=== PATIENT | male | born 1995 | race Caucasian/White ===

== ENCOUNTER 2024-12-04 03:28 | Emergency (ER) | payer SELFPAY ==
[2024-12-04 03:29] VITALS: BP 140/87; PULSE 76; RESP 17; TEMP 36.6; O2SAT 100; BMI 34.7
--- NOTE | 2024-12-04 03:45 | EDS_ITS ---
HPI History of Present Illness Chief Complaint: Palpitations Narrative Narrative: Patient is a 29-year-old male presenting to the emergency department for intermittent palpitations for the past 2 weeks. Patient has no significant past medical history. Patient states that over the past 2 weeks he has had palpitations but they have worsened over the past few days. States he was try to go to sleep when he started having the palpitations which is why he is here now. He reports that they are random throughout the day. It does not matter if he is exerting himself or rest. States that it occurs for a random amount of time each time he has them. Reports right-sided chest pain as well. States that that has been coming and going in different parts of his chest. Denies any shortness of breath. Denies cough, congestion or sore throat. Denies any diaphoresis, nausea or vomiting. Patient denies any history of any cardiac disease. Denies any hypertension, hyperlipidemia or diabetes history. Denies any drugs or alcohol. Denies any new supplements or excessive caffeine use. [facility] Medical History Cleft palate Home Medications ?Medication ?Instructions ?Recorded ?Last Taken ?Type NK 12/04/24 Unknown History Allergy/AdvReac Type Severity Reaction Status Date / Time No Known Allergies Allergy Verified 12/04/24 03:28 Family History Other Cancer Heart disease Mental disorder Surgical History Hx of tonsillectomy History of repair of congenital cleft palate Social History Smoking Status: Former smoker alcohol intake: current alcohol intake frequency: a few times a month ROS ROS ED ROS Narrative see HPI EXAM Physical Exam Narrative Exam Narrative: Vital signs: Reviewed General: Alert and oriented x 3. No acute distress HEENT: Head is normocephalic and atraumatic, sinuses nontender, pupils equal round and reactive. Nares are patent. Oropharynx and throat exams normal. Neck: Supple without lymphadenopathy nontender Cardiovascular: Regular rate and rhythm, no murmurs. No rubs or gallops. Normal S1 and S2 Respiratory: Clear to auscultation bilaterally. No wheezes, rales, rhonchi Abdominal: Soft and nontender. Normal bowel sounds. No guarding or rebound. Nonsurgical abdomen Extremities: No tenderness. No bruising. Normal range of motion. Normal sensation. Skin: No rash or redness. Neurological: Cranial nerves II through XII are grossly intact. Normal strength and sensation. Normal cerebellar function The rest of the physical exam is unremarkable Const Vital Signs: 12/04/24 03:29 12/04/24 03:29 Temperature 97.8 F Temperature Source Oral Pulse Rate 76 Respiratory Rate 17 Respiratory Effort Normal Blood Pressure 140/87 H Blood Pressure Mean 104 Pulse Ox 100 Oxygen Delivery Method Room Air MDM MDM MDM Narrative Medical decision making narrative: Patient is a 29-year-old male presenting to the emergency department for palpitations. Patient was seen and examined. Vitals are stable. Patient resting bed comfortably in no acute distress. EKG shows normal sinus rhythm with no ischemic changes. No dysrhythmia. Labs including magnesium and TSH were ordered. Troponin was ordered. Chest x-ray was ordered. Chest x-ray reviewed by myself. No opacity, pneumothorax or widened mediastinum noted. CBC with no leukocytosis and a normal hemoglobin. BMP with no significant abnormalities. Troponin within normal limits. His chest pain has been on and off for the past 2 weeks I do not think it is necessary to obtain additional troponins with negative EKG and negative troponin. Magnesium within normal limits. TSH within normal limits. Did discuss the findings with the patient and significant other at bedside. Recommended that he follow-up with his primary care doctor for discussion for possible Holter monitor given the palpitations are on and off. States he does not have one, referral given. Patient discharged from the Emergency Department. I do not feel that the patient's evaluation reveals any acute reason for admission at this time. I instructed them to either follow-up with their primary care physician or promptly return to the Emergency Department for reevaluation should symptoms worsen or new symptoms develop. I explained what symptoms would indicate the need to return to the emergency department. Shared decision making was used. The patient voiced understanding of the treatment plan and is agreeable with it. Clinical impression Palpitations Chest pain History & Record Review Discussion w/independent historian: Patient and Significant other Lab Data Attestation: I reviewed the patient's lab results. Labs: Laboratory Results - last 24 hr 12/04/24 03:49 WBC 8.3 RBC 4.78 Hgb 14.0 Hct 41.5 MCV 86.8 MCH 29.3 MCHC 33.7 RDW Std Deviation 40.2 RDW Coeff of Ariana 12.6 Plt Count 246 MPV 9.6 Immature Gran % (Auto) 0.500 Neut % (Auto) 49.2 Lymph % (Auto) 37.8 [place] % (Auto) 10.2 H Eos % (Auto) 1.5 Baso % (Auto) 0.8 Absolute Neuts (auto) 4.1 Absolute Lymphs (auto) 3.12 Nucleated RBC % 0 Sodium 141 Potassium 4.5 Chloride 105 Carbon Dioxide 27.8 Anion Gap 9 BUN 16 Creatinine 1.05 Estim Creat Clear Calc 107.82 Est GFR (MDRD) Non-Af 97 BUN/Creatinine Ratio 15.2 Glucose 103 H Calcium 9.5 Magnesium 2.2 Troponin T High Sens < 6 TSH 1.860 Radiography Chest X-Ray - ED: 2 View, Read by ED Physician, Normal, No Acute Disease and No Infiltrates Discharge Plan Triage Chief Complaint: Palpitations ED Provider: Kyung Schultz Dx/Rx/DC Orders Clinical Impression: Chest pain, Heart palpitations Instructions: ED Chest Pain, Uncertain Cause, ED Heart Palpitations Prescriptions: No Action NK Primary Care Provider: Care Physician,No Primary Referrals: Bhavesh Salcedo MD [Med Staff - [facility] [employer]] - 2 Days (holter monitor?) Care Physician,No Primary [Primary Care Provider] - Activity Restrictions/Additional Instructions: Your evaluation in the Emergency Department did not reveal any acute reason for admission. However, I want to emphasize that you may be early in the course of a disease process or illness even if it is not present. For this reason you should follow-up within 24 hours for reevaluation with either your primary care physician or if necessary back here in the Emergency Department. You should return to the Emergency Department immediately if your symptoms worsen or new symptoms develop. Print Language: Yakut
[2024-12-04 03:57] LABS: Hematocrit 41.5 % (40-54); Hemoglobin 14.0 g/dL (13.0-16.5); Immature Granulocytes Count 0.040 X10^3/uL (0.0-0.0); Mean Corp Hgb Conc 33.7 g/dL (32-36); Mean Corpuscular Volume 86.8 fL (80-94); Mean Platelet Vol. 9.6 fl (6.2-12.0); NRBC Flagged by Analyzer 0 % (0-5); Platelet Count 246 K/mm3 (150-450); RBC Distribution Width CV 12.6 % (11.6-14.6); RBC Distribution Width SD 40.2 fl (35.1-43.9); Red Blood Count 4.78 M/mm3 (4.6-6.2); White Blood Count 8.3 K/mm3 (4.4-11.0)
--- OUTSIDE RECORDS SUMMARY | 2024-12-04 04:13 | XMS RPT_ITS | CCD ---
Author Organization [facility] Care Team Providers Care Apigee Developer Name Role Phone GEREMIAS JACQUES MD Admitting Unavailable GEREMIAS JACQUES MD Attending Unavailable GEREMIAS JACQUES MD Primary Care Unavailable NO, DOCTOR ON Consulting Unavailable DEFABIOCHARITY DO Admitting Unavailab le DEFABIOCHARITY DO Attending Unavailab le DEFABIO, CHARITY DO Primary Care Unavailab le NO, DOCTOR ON Consulting Unavailable JOSIE TODD CNP Admitting Unavailable JOSIE TODD CNP Attending Unavailable JOSIE TODD CNP Primary Care Unavailable NO, DOCTOR ON Consulting Unavailable ANNETTE HARRIS Referring Unavailable Unavailable Primary Care Provider Unavailabl e Medications Current Medications Medication Drug Class(es) Dates Sig (Normalized) Sig (Original) benzonatate 100 mg oral capsule (1 source) Non-narcotic Antitussive Start: 12-30-2022 take 1 capsule by mouth every eight hours as needed benzonatate (TESSALON PERLES) 100 mg capsule Take 1 capsule by mouth three times daily as needed for cough. 18 capsule 12/30/2022 Active MEN'S MULTI-VITAMIN ORAL (1 source) MEN'S MULTI-VITAMIN ORAL Indications: Anxiety Take by mouth. Active PARoxetine hydrochloride 40 mg oral tablet (1 source) Serotonin Reuptake Inhibitor Start: 06-04-2017 take 1 tablet by mouth once daily PARoxetine (PAXIL) 40 mg tablet Indications: Anxiety Take 1 tablet by mouth once daily. 30 tablet 2 06/04/2017 Active Completed/Discontinued Medications Medication Drug Class(es) Dates Sig (Normalized) Sig (Original) amoxicillin 875 mg / clavulanate 125 mg oral tablet (1 source) Penicillin-class Antibacterial Start: 12-30-2022 End: 01-06-2023 take 1 tablet by mouth twice daily amoxicillin-clav ulanic acid (AUGMENTIN) 875-125 mg per tablet Take 1 tablet by mouth twice daily for 7 days. 14 tablet 12/30/2022 01/06/2023 Problems Active Problems Problem Classification Problem Date Documented Da te Episodic/Chronic Mood disorders (1 source) Major depressive disorder, recurrent severe without psychotic features; Translations: [Major depressive disorder, recurrent severe without psychotic features] Onset: 07-03-2021 Chronic Other lower respiratory disease (1 source) Cough; Translations: [Acute cough] 12-30-2022 Episodic Residual codes; unclassified (1 source) Tobacco use and exposure - finding; Translations: [Tobacco use] 12-13-2016 Episodic Substance-related disorders (1 source) Nicotine dependence, unspecified, uncomplicated; Translations: [Nicotine dependence, unspecified, uncomplicated] Onset: 07-03-2021 Chronic Unclassified (1 source) Acute cough; Translations: [Acute cough] Onset: 12-30-2022 Past or Other Problems Problem Classification Problem Date Documented Da te Episodic/Chronic Other screening for suspected conditions (not mental disorders or infectious disease) (1 source) Encounter for screening for lipoid disorders; Translations: [Encounter for screening for lipoid disorders] Onset: 07-03-2021 Episodic Results Test Name Value Interpretation Reference Range Facility [facility] 12-30-2022 CNOV Office Visit ([facility]WSTR ) -------- FRED LEE ([id number]) 1995 M Date Time Provider Department 12/30/22 1:00 PM ANNETTE HARRIS [facility] During your visit today, we recorded the following information about you: Temperature Pulse Respiration Blood pressure 97.9 degrees 92/minute 16/minute 112/76 Weight 89.4 kg Annette Harris APRN.CNP 12/30/2022 3:07 PM Signed This note was created using Playbooxriter. Subjective Fred Lee is a 27 year old male. 27 year old male with no PMH presents for illness. Acute onset 6 days ago Started with fever and ear pain Has progressed +cough +productive +chest congestion SOB with coughing and doing activity Quit smoking this past August 2022 Has used Dayquil and Nyquil The history is provided by the patient. No modern languages professor was used. Cough This is a new problem. The current episode started more than 2 days ago. The problem occurs constantly. The problem has been gradually worsening. The maximum temperature recorded prior to his arrival was 100 to 100.9 F. Associated symptoms include chills, headaches, rhinorrhea, sore throat and wheezing. Pertinent negatives include no sweats, no weight loss, no ear congestion, no ear pain, no myalgias, no shortness of breath and no eye redness. Treatments tried: see HPI. The treatment provided no relief. He is not a smoker. His past medical history does not include bronchitis, pneumonia, bronchiectasis, COPD, emphysema or asthma. PAST MEDICAL HISTORY Diagnosis Date Anxiety Cleft palate Depression Scoliosis Tobacco use PAST SURGICAL HISTORY Procedure Laterality Date MYRINGOTOMY PALATOPLASTY - CLEFT PALATE PAST SURGICAL HISTORY OF wisdom teeth extraction SEPTOPLASTY deviated septum TONSILLECTOMY HX ALLERGIES Patient has no known allergies. MEDICATIONS MEN'S MULTI-VITAMIN ORAL Take by mouth. amoxicillin-clavulanic acid (AUGMENTIN) 875-125 mg per tablet Take 1 tablet by mouth twice daily for 7 days. benzonatate (TESSALON PERLES) 100 mg capsule Take 1 capsule by mouth three times daily as needed for cough. PARoxetine (PAXIL) 40 mg tablet Take 1 tablet by mouth once daily. (Patient not taking: Reported on 02/09/2019 ) FAMILY HISTORY Problem Relation Age of Onset Psychiatry Mother Heart Father Cancer Maternal Uncle lung, pancreatic, throat Social History Tobacco Use Smoking status: Every Day Packs/day: 0.50 Years: 10.00 Additional pack years: 0.00 Total pack years: 5.00 Types: Cigarettes Start date: 03/26/2006 Smokeless tobacco: Current Types: Chew Substance Use Topics Alcohol use: No Drug use: No Comment: previously used THC, no h/o IVDA Review of Systems Constitutional: Positive for chills. Negative for weight loss. HENT: Positive for rhinorrhea and sore throat. Negative for ear pain. Eyes: Negative for redness. Respiratory: Positive for cough and wheezing. Negative for shortness of breath. Musculoskeletal: Negative for myalgias. Neurological: Positive for headaches. Objective BP 112/76 Pulse 92 Temp 36.6 ?C (97.9 ?F) (Tympanic) Resp 16 Wt 89.4 kg (197 lb) SpO2 97% Physical Exam Vitals and nursing note reviewed. Constitutional: General: He is not in acute distress. Appearance: Normal appearance. He is not ill-appearing, toxic-appearing or diaphoretic. HENT: Head: Normocephalic and atraumatic. Right Ear: External ear normal. Left Ear: External ear normal. Ears: Comments: Left ear with erythematous and bulging TM Nose: Nose normal. No congestion or rhinorrhea. Mouth/Throat: Mouth: Mucous membranes are moist. Pharynx: Oropharynx is clear. No oropharyngeal exudate or posterior oropharyngeal erythema. Eyes: General: Right eye: No discharge. Left eye: No discharge. Extraocular Movements: Extraocular movements intact. Conjunctiva/sclera: Conjunctivae normal. Pupils: Pupils are equal, round, and reactive to light. Cardiovascular: Rate and Rhythm: Normal rate and regular rhythm. Pulses: Normal pulses. Heart sounds: Normal heart sounds. No murmur heard. No friction rub. No gallop. Pulmonary: Effort: Pulmonary effort is normal. No respiratory distress. Breath sounds: Normal breath sounds. No stridor. No wheezing, rhonchi or rales. Chest: Chest wall: No tenderness. Abdominal: General: Abdomen is flat. There is no distension. Palpations: Abdomen is soft. There is no mass. Tenderness: There is no abdominal tenderness. There is no guarding or rebound. Hernia: No hernia is present. Musculoskeletal: General: No swelling, tenderness, deformity or signs of injury. Normal range of motion. Cervical back: Normal range of motion and neck supple. No rigidity or tenderness. Right lower leg: No edema. Left lower leg: No edema. Lymphadenopathy: Cervical: No cervical adenopathy. Skin: General: Skin is warm (more content not included)... Normal [facility] XR CHEST 2V FRONTAL/LATon XR CHEST 2V FRONTAL/LAT * * *Final Report* * * DATE OF EXAM: Dec 30 2022 1:40PM WOX 5291 - XR CHEST 2V FRONTAL/LAT / PROCEDURE REASON: Acute cough * * * * Physician Interpretation * * * * EXAMINATION: CHEST RADIOGRAPH (2 VIEW FRONTAL and LATERAL) CLINICAL HISTORY: Acute cough MQ: XC2_6 EXAM DATE/TIME: 12/30/2022 1:40 PM COMPARISON: No relevant prior studies available. RESULT: Lines, tubes, and devices: None. Lungs and pleura: No consolidation. No lung mass. No pleural effusion. No pneumothorax. Cardiomediastinal silhouette: Normal cardiomediastinal silhouette. Bones and soft tissues: Unremarkable. IMPRESSION: No acute radiographic abnormality. Felt Cementer: PSCB Transcribe Date/Time: Dec 30 2022 1:51P Dictated by : DEDRICK ALMAGUER MD This examination was interpreted and the report reviewed and electronically signed by: DEDRICK ALMAGUER MD on Dec 30 2022 1:53PM EST [id number] Normal [facility] XR Chest PA and Lateralon IMPRESSION: No acute radiographic abnormality. Felt Cementer: PSCB Transcribe Date/Time: Dec 30 2022 1:51P Dictated by : DEDRICK ALMAGUER MD This examination was interpreted and the report reviewed and electronically signed by: DEDRICK ALMAGUER MD on Dec 30 2022 1:53PM EST DIVISION OF RADIOLOGY * * *Final Report* * * DATE OF EXAM: Dec 30 2022 1:40PM WOX 5291 - XR CHEST 2V FRONTAL/LAT / PROCEDURE REASON: Acute cough * * * * Physician Interpretation * * * * EXAMINATION: CHEST RADIOGRAPH (2 VIEW FRONTAL & LATERAL) CLINICAL HISTORY: Acute cough MQ: XC2_6 EXAM DATE/TIME: 12/30/2022 1:40 PM COMPARISON: No relevant prior studies available. RESULT: Lines, tubes, and devices: None. Lungs and pleura: No consolidation. No lung mass. No pleural effusion. No pneumothorax. Cardiomediastinal silhouette: Normal cardiomediastinal silhouette. Bones and soft tissues: Unremarkable. DIVISION OF RADIOLOGY Provider, [facility] - 12/30/2022 * * *Final Report* * * DATE OF EXAM: Dec 30 2022 1:40PM WOX 5291 - XR CHEST 2V FRONTAL/LAT / PROCEDURE REASON: Acute cough * * * * Physician Interpretation * * * * EXAMINATION: CHEST RADIOGRAPH (2 VIEW FRONTAL & LATERAL) CLINICAL HISTORY: Acute cough MQ: XC2_6 EXAM DATE/TIME: 12/30/2022 1:40 PM COMPARISON: No relevant prior studies available. RESULT: Lines, tubes, and devices: None. Lungs and pleura: No consolidation. No lung mass. No pleural effusion. No pneumothorax. Cardiomediastinal silhouette: Normal cardiomediastinal silhouette. Bones and soft tissues: Unremarkable. IMPRESSION IMPRESSION: No acute radiographic abnormality. Felt Cementer: PSCB Transcribe Date/Time: Dec 30 2022 1:51P Dictated by : DEDRICK ALMAGUER MD This examination was interpreted and the report reviewed and electronically signed by: DEDRICK ALMAGUER MD on Dec 30 2022 1:53PM EST [facility] Radiology Study observation (narrative) [facility] XR Chest PA and LateralOrder ed By: [facility] Provider on 12-30-2022 [facility] EMERGENCY REPORTon EMERGENCY REPORT [facility] EMERGENCY ROOM REPORT NAME ACCOUNT SEX AGE ADMIT DISCHARGE PT MED. RECORD# NUMBER DATE TYPE HEATH [id number] Pio 10/31/21 11/01/21 3 FRED Christianson [id number] ROOM: ER DATE OF : 1995 DICTATING PHYSICIAN: Geremias Jacques CHIEF COMPLAINT: Palpitations. HISTORY OF PRESENT ILLNESS: The patient is a 26-year-old male who presents for evaluation of palpitations and chest pain for the last 2 days. The patient notes that he began taking medication again for anxiety. The patient recently started Paxil. He denies shortness of breath, fevers, coughing, abdominal pain, nausea or vomiting, or additional clinical concerns at this time. PAST MEDICAL HISTORY: Past medical history notable for anxiety and depression; otherwise, denies. PAST SURGICAL HISTORY: Notable for cleft lip, palate surgeries, and wisdom teeth removal. ALLERGIES: No known drug allergies. SOCIAL HISTORY: The patient is a current everyday smoker with 1 pack per day. He occasionally uses alcohol. No illicit substance use or prescription drug abuse. Immunizations are up-to-date. No concerns for domestic violence or thoughts of self harm. REVIEW OF SYSTEMS: Pertinent positives per HPI; otherwise, negative. PHYSICAL EXAMINATION: VITAL SIGNS: Temperature 98.2, pulse 90, respiratory rate 18, blood pressure 120/77, oxygen saturation 95% on room air. GENERAL: The patient is awake, alert, and in no acute distress and conversational. HEENT: Atraumatic and normocephalic. Extraocular muscles are intact. Mucous membranes are moist. NECK: Range of motion grossly normal. CARDIOVASCULAR: Regular rate and rhythm. No murmurs, rubs, or gallops. PULMONARY: Clear to auscultation bilaterally. No wheezes, rales, or rhonchi. ABDOMEN: Soft, nontender, and nondistended. Bowel sounds are positive. NEUROLOGIC: No focal findings. PSYCHIATRIC: Appropriate for age and situation. Notably slightly anxious. DIAGNOSTIC DATA: EKG is negative for acute ischemic changes or arrhythmic changes anterior, lateral, or inferior leads. Page 1 of 2 FRED LEE Emergency Room Report FRED LEE : 1995 Laboratory results including a CBC, BMP, troponin, TSH, and liver function testing are unremarkable at this time. MEDICAL DECISION MAKING/EMERGENCY DEPARTMENT COURSE AND TREATMENT: The patient is a 26-year-old male who presents for evaluation of chest pain and palpitations. EKG is negative for acute findings at this time. Laboratory work is unremarkable. Symptoms seem to have improved prior to initial evaluation. I do feel that the patient's symptoms are more likely related to anxiety and potentially related the Paxil, which the patient has recently started. DIAGNOSES: 1. Chest pain. 2. Palpitations. PLAN/DISPOSITION: I did recommend following up with primary care physician for reassessment and consideration of medication adjustments or other treatment options. In order to mitigate symptoms in the future, I did provide the patient with a prescription for a short course of Ativan. I did recommend returning to the emergency department for return of original symptoms or with any new concerns. All of the patient's questions were answered to his satisfaction at this time, and he did feel comfortable with plan for outpatient followup. Condition is good. Disposition is home. Dictated By: Geremias Jacques MD 12/02/21 22:52 JOB #: [id number] Transcribed By: am 12/03/21 13:15 Electronically signed by: DR. GEREMIAS JACQUES 02/22/22 05:00 Page 2 of 2 FRED LEE Emergency Room Report Normal [facility] CBC + DIFFon 11-01-2021 Baso # 0.00 x10EE3/UL Normal 0.00 - 0.10 [facility] Comment on above: Performed By: #### 2 65941 #### [place] [address] Basophils/100 WBC (Bld) 0.7 % Normal 0.0 - 2.0 [facility] Comment on above: Performed By: #### 2 58039 #### [facility],[address] [place] [address] CBC + DIFF Normal [facility] Comment on above: Result Comment: CBC- COMPLETE BLOOD COUNT Performed By: #### 2 47575 #### [place] [address] EO # 0.20 x10EE3/UL Normal 0.00 - 0.50 [facility] Comment on above: Performed By: #### 2 52004 #### [facility],[address] [place] [address] Eosinophils/100 WBC (Bld) 3.1 % Normal 0.0 - 7.0 [facility] Comment on above: Performed By: #### 2 70087 #### [facility],[address] [place] [address] Erythrocyte distribution width (RBC) [Ratio] 13.3 % Normal 12.0 - 15.6 [facility] Comment on above: Performed By: #### 2 98357 #### [facility],[address] [place] [address] Hematocrit (Bld) [Volume fraction] 42.1 % Normal 40.0 - 52.0 [facility] Comment on above: Performed By: #### 2 78141 #### [facility],[address] [place] [address] Hemoglobin (Bld) [Mass/Vol] 14.3 g/dL Normal 13.0 - 17.5 [facility] Comment on above: Performed By: #### 2 01205 #### [facility],[address] [place] [address] Lymph # 2.80 x10EE3/UL Normal 0.80 - 2.80 [facility] Comment on above: Performed By: #### 2 75078 #### [facility],[address] [place] [address] Lymphocytes/100 WBC (Bld) 44.1 % Normal 20.0 - 45.0 [facility] Comment on above: Performed By: #### 2 68124 #### [facility],[address] [place] [address] MANUAL DIFF N/A Normal [facility] Comment on above: Performed By: #### 2 84659 #### [facility],[address] [place] [address] MCH (RBC) [Entitic mass] 30 pg Normal 27 - 33 [facility] Comment on above: Performed By: #### 2 90251 #### [facility],[address] [place] [address] MCHC 34 X10 3 Normal 32 - 36 [facility] Comment on above: Performed By: #### 2 88108 #### [facility],[address] [place], [place] [id number] MCV (RBC) [Entitic vol] 88 fL Normal 81 - 98 [facility] Comment on above: Performed By: #### 2 83975 #### [facility],[address] [place] [address] [place] # 0.60 x10EE3/UL Normal 0.20 - 1.00 [facility] Comment on above: Performed By: #### 2 00213 #### [facility],[address] [place] [address] MONOS % 8.9 % Normal 0.0 - 10.0 [facility] Comment on above: Performed By: #### 2 36665 #### [facility],[address] [place] [address]16[address] Morphology Isaias (Bld) [Interp] N/A Normal [facility] Comment on above: Result Comment: {CD] Performed By: #### 2 04252 #### [facility],[address] [place] [address] 59578 Neut # 2.80 x10EE3/UL Normal 1.50 - 7.10 [facility] Comment on above: Performed By: #### 2 71863 #### [facility],[address] [place] [address] 18863 Neutrophils/100 WBC (Bld) 43.2 % Low 46.0 - 76.0 [facility] Comment on above: Performed By: #### 2 39213 #### [facility],[address] [place], [place] [id number] PLATELET 228 x10EE3/UL Normal 150 - 450 [facility] Comment on above: Performed By: #### 2 61385 #### [facility],[address] [place] [address] 54607 Platelet mean volume (Bld) [Entitic vol] 8.6 fL Normal 6.4 - 10.5 [facility] Comment on above: Result Comment: AUTO MATED DIFFERENTIAL Performed By: #### 2 42627 #### [facility],[address] [place] [address] 94460 RBC 4.81 x 10EE6/UL Normal 4.50 - 6.00 [facility] Comment on above: Performed By: #### 2 38650 #### [facility],[address] [place] [address] 85488 WBC 6.4 x 10EE3/UL Normal 4.5 - 10.8 [facility] Comment on above: Performed By: #### 2 38595 #### [facility],[address] [place] [address] 16858 CMP with eGFRon 11-01-2021 AGE [address] [facility] Comment on above: Performed By: #### 2 04694 #### [facility],[address] [place] [address] 04587 Albumin [Mass/Vol] 3.9 g/dL Normal 3.4 - 5.0 [facility] Comment on above: Performed By: #### 2 25589 #### [facility],[address] [place] [address] 66452 Albumin/Globulin [Mass ratio] 1.3 {ratio} Normal 0.9 - 1.6 [facility] Comment on above: Performed By: #### 2 93146 #### [facility],[address] [place] [address] 20896 ALK PHOS 68 U/L Normal 46 - 116 [facility] Comment on above: Performed By: #### 2 01531 #### [facility],[address] [place] [address] 67745 ALT [Catalytic activity/Vol] 33 U/L Normal 16 - 63 [facility] Comment on above: Performed By: #### 2 17880 #### [facility],[address] [place] [address] 46253 Anion gap [Moles/Vol] 13 mmol/L Normal 10 - 20 [facility] Comment on above: Performed By: #### 2 49327 #### [facility],[address] [place] [address] 37155 AST [Catalytic activity/Vol] 20 U/L Normal 15 - 37 [facility] Comment on above: Performed By: #### 2 12298 #### [facility],[address] [place] [address] 52310 B/C RATIO 21 ratio Normal 0 - 30 [facility] Comment on above: Performed By: #### 2 68866 #### [facility],[address] [place] [address] 19826 Bilirubin [Mass/Vol] 0.7 mg/dL Normal 0.2 - 1.0 [facility] Comment on above: Performed By: #### 2 46095 #### [facility],[address] [place] [address] 55573 Calcium [Mass/Vol] 9.0 mg/dL Normal 8.5 - 10.1 [facility] Comment on above: Performed By: #### 2 31940 #### [facility],[address] [place] [address] 39443 Chloride [Moles/Vol] 105 mmol/L Normal 98 - 107 [facility] Comment on above: Performed By: #### 2 94581 #### [facility],[address] [place] [address] 88558 CMP with eGFR Normal [facility] Comment on above: Result Comment: COMP REHENSIVE METABOLIC PANEL Performed By: #### 2 72937 #### [facility],[address] [place] [address] 62460 CO2 [Moles/Vol] 28.1 mmol/L Normal 21.0 - 32.0 [facility] Comment on above: Performed By: #### 2 85799 #### [facility],[address] [place] [address] 61673 Creatinine [Mass/Vol] 0.92 mg/dL Normal 0.70 - 1.30 [facility] Comment on above: Performed By: #### 2 94654 #### [facility],[address] [place] [address] 27322 GFR/1.73 sq M.predicted among non-blacks MDRD (S/P/Bld) [Vol rate/Area] mL/min/{1.73_m2} Normal 60 - 999 [facility] Comment on above: Performed By: #### 2 26105 #### [facility],[address] [place], [place] [id number] Result Comment: ACCO RDING TO THE NATIONAL KIDNEY DISEASE EDUCATION PROGRAM(NKDE), A NORMAL eGFR IS A VALUE GREATER THAN OR EQUAL TO 60 ML/MIN/1.73 SQ METERS. CHRONIC KIDNEY DISEASE: <60mL/MIN/1.73 SQ METERS KIDNEY FAILURE: <15mL/MIN/1.73 SQ METERS THIS TEST SHOULD ONLY BE USED FOR PATIENTS 18 YEARS OF AGE AND OLDER. Globulin (S) [Mass/Vol] 3.0 g/dL Normal 1.5 - 3.8 [facility] Comment on above: Performed By: #### 2 56077 #### [facility],[address] [place] [address] 05588 Glucose [Mass/Vol] 114 mg/dL High 74 - 106 [facility] Comment on above: Performed By: #### 2 59496 #### [facility],[address] [place] [address] 62023 Potassium [Moles/Vol] 3.8 mmol/L Normal 3.5 - 5.1 [facility] Comment on above: Performed By: #### 2 09320 #### [facility],[address] [place] [address] 87605 Protein [Mass/Vol] 6.9 g/dL Normal 6.4 - 8.2 [facility] Comment on above: Performed By: #### 2 50151 #### [facility],[address] [place] [address] 08166 Sodium [Moles/Vol] 142 mmol/L Normal 136 - 145 [facility] Comment on above: Performed By: #### 2 79404 #### [facility],[address] [place] [address] 78638 Urea nitrogen [Mass/Vol] 19 mg/dL High 7 - 18 [facility] Comment on above: Performed By: #### 2 11833 #### [facility],[address] [place] [address] 81349 TROPONIN I, HIGH SENSITIVITY on 11-01-2021 HS TROPONIN 8.0 pg/mL Normal 0.0 - 76.2 [facility] Comment on above: Performed By: #### 2 19639 #### [facility],[address] [place] [address] 94069 TSHon 11-01-2021 TSH Qn 1.08 m[IU]/L Normal 0.35 - 3.74 [facility] Comment on above: Performed By: #### 2 07215 #### [facility],[address] [place] [id number] Urgent Care Visit Reporton 0 07-15-2021 Urgent Care Visit Report [facility] [address] [facility] [address] [place] [id number] OFFICE VISIT Date of Service: 07/15/21 MR#: [id number] Acct: [id number] Name: FRED ELE Rep #: [id number] : 1995 Provider: TAHIR Jones Age/Sex: 26/M Location: [facility] Status: Signed Intake Vital Signs 07/15/21 14:39 Height 1.65 m Weight: 72.575 kg BMI 26.6 BP 120/81 H Blood Pressure Location Lt brachial Position Sitting Respiration 16 Pulse 89 Pulse Source Monitor Temp 99.1 F Temp Source Temporal Intake Visit Reasons: NAUSEA, FATIGUED Allergies No Known Allergies Allergy (Verified 07/15/21 14:40) [facility] Medical History (Updated 07/15/21 @ 15:00 by TAHIR Michael) Cleft palate Surgical History (Updated 07/15/21 @ 14:43 by Xochitl Arce) History of repair of congenital cleft palate Hx of tonsillectomy Family History (Updated 07/15/21 @ 14:42 by Xochitl Arce) Other Cancer Heart disease Mental disorder Social History (Updated 07/15/21 @ 14:43 by Xochitl Arce) Smoking Status: Current every day smoker tobacco type: cigarettes alcohol intake: current alcohol intake frequency: a few times a month HPI HPI Details: FRED LEE, is a 26 M who presents to the office today for nausea and fatigue. The patient has been sick since thursday. He has nausea, vomiting, decreased PO intake, fatigue, hedache, and cough which he relates to his gag reflex. He also has stomach cramping. He denies diarrhea. His son recently had the same. No SOB/wheezing. ROS Const Constitutional: Positive for body ache, fatigue and headache(s); No chills or fever(s) ENT ENT: Positive for headache(s) Resp Respiratory: Positive for cough; No shortness of breath or wheezing Gastro GI: Positive for cramping, nausea/dyspepsia and vomiting; No diarrhea Neuro Neurology: Positive for headache(s) Endo Endocrine: Positive for fatigue Aller/Imm Allergy/Immunologic: No wheezing Exam Const General: cooperative, comfortable, no acute distress, well developed, well groomed and ill appearing Nutritional Appearance: average body habitus and well nourished Orientation: alert, awake and oriented x3 Resp Effort Inspection: normal respiratory effort, able to speak in complete sentences, symmetric chest movement and no cough Auscultation: Bilateral: Clear to Auscultation Cardio Rate: regular rate Rhythm: regular rhythm Heart Sounds: no murmurs GI Auscultation: hypoactive bowel sounds Palpation: soft, not firm, no guarding and tender (diffusely, with moderate pressure, no guarding/rigidity) Results POC SARS AG POC SARS AG Negative Last Edit by Xochitl Arce on 07/15/21 14:47 POC FLU A B Office Flu A B Negative FLU A B Last Edit by Xochitl Arce on 07/15/21 14:47 Coding Level of Care Code Off vis,new,level 3 Diagnoses Viral gastroenteritis A08.4 Assessment and Plan Assessment and Plan (1) Viral gastroenteritis: Status: Acute Plan - TAHIR Michael: Sick x 48 hours with nausea vomiting, fatigue, dec PO intake. Son had same. he had some body aches, headache, and cough (tho he related this to gag reflex). Tested him for covid and flu here in the office. these were both negative. He was educated on viral gastroenteritis. he was advised to hydrate and slowly advance diet as tolerated avoiding spicy/greasy foods. pt was prescribed zofran for nausea. Plan Details Other Medications: New: ondansetron 4 mg PO Q6H PRN 20 tabs 0RF nausea and vomiting Other Orders: Orders: POC FLU A B Today R51.9, R53.83 POC Rapid SARS Antigen Today 07/15/21 1502 Date Pola HARO Cosigner Signature: Date (if applicable) CC: Normal [facility] EMERGENCY REPORTon 1 EMERGENCY REPORT [facility] EMERGENCY ROOM REPORT NAME ACCOUNT SEX AGE ADMIT DISCHARGE PT MED. RECORD# NUMBER DATE DATE TYPE HEATH [id number] Pio 26 03/29/21 03/29/21 Swetha FRED Christianson [id number] ROOM: ER DATE OF : 1995 DICTATING PHYSICIAN: Charity Rai HISTORY OF PRESENT ILLNESS: The patient is a 26-year-old male with a past medical history of anxiety, not on any anti-anxiety medication, presenting to the Emergency Department because he believes he had a panic attack overnight. The patient states that he was doing nothing, and then all of a sudden his chest felt tight, and he felt like he could not breathe. He got incredibly anxious and felt cold all over his body. The patient states he has had this happen before when he used to get anxiety attacks. However, he has not been on any anti-anxiety medications for quite some time, as he took himself off of them. The patient denies any shortness of breath, chest pain, or numbness or tingling at this point in time. The patient states he has gotten these often in the past; however, it has been awhile since he has gotten it. The patient denies any stressors in his life. The patient denies any suicidal ideation, homicidal ideation or hallucinations. The patient denies any history of DVT, PE, recent immobilization, recent surgery, recent travel, unilateral leg swelling, hemoptysis, active cancer that he is aware of, or exogenous hormone use. SOCIAL HISTORY: The patient denies any illicit drug use, alcohol use or marijuana use. REVIEW OF SYSTEMS: Ten-point review of systems was completed and all negative unless otherwise stated above. PHYSICAL EXAMINATION: GENERAL: The patient is in no acute distress and is nontoxic-appearing. HEENT: Head is normocephalic, atraumatic. PERRLA, EOMI. Conjunctivae are clear. TMs are unremarkable bilaterally. External ears are unremarkable bilaterally. Nares without any epistaxis, rhinorrhea or congestion. Septum is midline. Oropharynx with moist mucous membranes. NECK: No cervical lymphadenopathy. Full range of motion of the neck with no nuchal rigidity. LUNGS: Lungs are clear to auscultation bilaterally with no wheezing, rales or rhonchi. The patient is saturating 99% on room air. Unlabored breathing with no evidence of retractions or tachypnea. CARDIOVASCULAR: Regular rate and rhythm with no murmurs, rubs or gallops. Capillary refill is less than 2 seconds. DP, PT and radial pulses are 2+. ABDOMEN: Soft, nondistended and nontender with no evidence of rigidity or guarding. No cva tenderness bilaterally. Negative Willett's. Negative Rovsing's. MUSCULOSKELETAL: The patient has 5/5 strength in all 4 extremities through full range of motion with sensation and two-point discrimination intact at less than 5 mm. The patient has no evidence of ataxia on pbgaww-am-vdqq or odym-sc-svuw. Page 1 of 2 FRED LEE Emergency Room Report FRED LEE : 1995 NEUROLOGIC: The patient is alert and oriented to person, place and time. Cranial nerves II through XII are intact. NIH of 0. The patient appears at his neurologic baseline per his girlfriend. PSYCHIATRIC: The patient does have a flat affect, however appropriate mood and thought process. DIAGNOSTIC DATA: The patient's EKG shows normal sinus rhythm with a ventricular rate of 82. Intervals are within normal limits. QTc is 434. No significant ST or T-wave abnormalities significant for acute ischemia. Evidence of early repolarization in the precordial leads. No STEMI. The patient's chest x-ray shows no acute radiographic abnormality. No evidence of pneumothorax or pneumonia. Cardiac silhouette is appropriate. The patient's laboratory evaluation shows no evidence of leukocytosis, anemia or thrombocytopenia. Metabolic panel without significant electrolyte abnormality. Kidney function is appropriate. Troponin is unremarkable at 4 and 4.9 on repeat with an unremarkable EKG. MEDICAL DECISION-MAKING/EMERGENC Y DEPARTMENT COURSE AND TREATMENT: The patient is a 26-year-old male with a past medical history of untreated anxiety presenting for chest pain and a suspected anxiety attack. The patient will receive an ACS work-up at this point in time. The patient can be PERC'd out as far as a pulmonary embolism, as he is not tachycardic and has no other risk factors. The patient is a low probability Wells as well. The patient states he is back to baseline and feels well right now and is symptom free. Given his unremarkable work-up, I feel that the patient can safely be discharged home to follow up with a primary care provider. The patient was provided with information and resources on PCPs, as his recently retired. I answered all of the patient's questions to the best of my ability. The patient was comfortable with this plan. The patient was made aware that if any new or worsening symptoms arose he should return to the Emergency Department immediately (more content not included)... Normal [facility] BMP with eGFRon 03-29-2021 AGE [address] [facility] Comment on above: Performed By: #### 2 56521 #### [facility],[address] [place] [address] Anion gap [Moles/Vol] 13 mmol/L Normal 10 - 20 [facility] Comment on above: Performed By: #### 2 89213 #### [facility],[address] [place] [address] BMP with eGFR Normal [facility] Comment on above: Result Comment: BASI C METABOLIC PANEL Performed By: #### 2 20071 #### [facility],[address] [place] [address] Calcium [Mass/Vol] 9.1 mg/dL Normal 8.5 - 10.1 [facility] Comment on above: Performed By: #### 2 49551 #### [facility],[address] [place] [address] 62232 Chloride [Moles/Vol] 103 mmol/L Normal 98 - 107 [facility] Comment on above: Performed By: #### 2 96490 #### [facility],[address] [place] [address] 33552 CO2 [Moles/Vol] 29.4 mmol/L Normal 21.0 - 32.0 [facility] Comment on above: Performed By: #### 2 77244 #### [facility],[address] [place] [address] Creatinine [Mass/Vol] 0.96 mg/dL Normal 0.70 - 1.30 [facility] Comment on above: Performed By: #### 2 76270 #### [facility],[address] [place], [place] [id number] GFR/1.73 sq M.predicted among non-blacks MDRD (S/P/Bld) [Vol rate/Area] mL/min/{1.73_m2} Normal 60 - 999 [facility] Comment on above: Performed By: #### 2 87272 #### [facility],[address] [place] [address] Result Comment: ACCO RDING TO THE NATIONAL KIDNEY DISEASE EDUCATION PROGRAM(NKDE), A NORMAL eGFR IS A VALUE GREATER THAN OR EQUAL TO 60 ML/MIN/1.73 SQ METERS. CHRONIC KIDNEY DISEASE: <60mL/MIN/1.73 SQ METERS KIDNEY FAILURE: <15mL/MIN/1.73 SQ METERS THIS TEST SHOULD ONLY BE USED FOR PATIENTS 18 YEARS OF AGE AND OLDER. Glucose [Mass/Vol] 100 mg/dL Normal 74 - 106 [facility] Comment on above: Performed By: #### 2 75923 #### [place] [phone] Potassium [Moles/Vol] 3.6 mmol/L Normal 3.5 - 5.1 [facility] Comment on above: Performed By: #### 2 45571 #### [facility],[address] [place], [place] [phone] Sodium [Moles/Vol] 142 mmol/L Normal 136 - 145 [facility] Comment on above: Performed By: #### 2 20383 #### [place] [phone] Urea nitrogen [Mass/Vol] 22 mg/dL High 7 - 18 [facility] Comment on above: Performed By: #### 2 42347 #### [facility],[address] [place], [place] [id number] CBC + DIFFon 03-29-2021 Baso # 0.10 x10EE3/UL Normal 0.00 - 0.10 [facility] Comment on above: Performed By: #### 2 29908 #### [facility],[address] [place] [address] 91895 Basophils/100 WBC (Bld) 1.1 % Normal 0.0 - 2.0 [facility] Comment on above: Performed By: #### 2 47091 #### [facility],[address] [place] [address] CBC + DIFF Normal [facility] Comment on above: Result Comment: CBC- COMPLETE BLOOD COUNT Performed By: #### 2 55970 #### [facility],[address] [place] [address] EO # 0.20 x10EE3/UL Normal 0.00 - 0.50 [facility] Comment on above: Performed By: #### 2 86986 #### [facility],[address] [place], [place] [phone] Eosinophils/100 WBC (Bld) 2.7 % Normal 0.0 - 7.0 [facility] Comment on above: Performed By: #### 2 29379 #### [facility],[address] [place] [address] Erythrocyte distribution width (RBC) [Ratio] 13.8 % Normal 12.0 - 15.6 [facility] Comment on above: Performed By: #### 2 08355 #### [facility],[address] [place] [address] Hematocrit (Bld) [Volume fraction] 43.4 % Normal 40.0 - 52.0 [facility] Comment on above: Performed By: #### 2 64112 #### [facility],[address] [place] [address] 26901 Hemoglobin (Bld) [Mass/Vol] 14.7 g/dL Normal 13.0 - 17.5 [facility] Comment on above: Performed By: #### 2 13583 #### [facility],[address] [place] [address] Lymph # 2.90 x10EE3/UL High 0.80 - 2.80 [facility] Comment on above: Performed By: #### 2 77017 #### [facility],[address] [place], [place] [phone] Lymphocytes/100 WBC (Bld) 31.6 % Normal 20.0 - 45.0 [facility] Comment on above: Performed By: #### 2 42886 #### [facility],[address] [place], [place] [phone] MANUAL DIFF N/A Normal [facility] Comment on above: Performed By: #### 2 92391 #### [facility],[address] [place], [place] [phone] MCH (RBC) [Entitic mass] 29 pg Normal 27 - 33 [facility] Comment on above: Performed By: #### 2 19067 #### [facility],[address] [place] [address] MCHC 34 X10 3 Normal 32 - 36 [facility] Comment on above: Performed By: #### 2 36454 #### [facility],[address] [place] [address] 12433 MCV (RBC) [Entitic vol] 87 fL Normal 81 - 98 [facility] Comment on above: Performed By: #### 2 21772 #### [facility],[address] [place] [address] 84993 [place] # 0.70 x10EE3/UL Normal 0.20 - 1.00 [facility] Comment on above: Performed By: #### 2 08255 #### [facility],[address] [place] [address] 70368 MONOS % 7.1 % Normal 0.0 - 10.0 [facility] Comment on above: Performed By: #### 2 41656 #### [facility],[address] [place] [address] 90021 Morphology Isaias (Bld) [Interp] N/A Normal [facility] Comment on above: Result Comment: {CD] Performed By: #### 2 66751 #### [facility],[address] [place] [address] 99141 Neut # 5.30 x10EE3/UL Normal 1.50 - 7.10 [facility] Comment on above: Performed By: #### 2 08300 #### [facility],[address] [place] [address] 90829 Neutrophils/100 WBC (Bld) 57.5 % Normal 46.0 - 76.0 [facility] Comment on above: Performed By: #### 2 65509 #### [facility],[address] [place] [address] 14431 PLATELET 279 x10EE3/UL Normal 150 - 450 [facility] Comment on above: Performed By: #### 2 52336 #### [facility],[address] [place] [address] 34169 Platelet mean volume (Bld) [Entitic vol] 8.1 fL Normal 6.4 - 10.5 [facility] Comment on above: Result Comment: AUTO MATED DIFFERENTIAL Performed By: #### 2 74464 #### [facility],[address] [place] [address] 47657 RBC 5.00 x 10EE6/UL Normal 4.50 - 6.00 [facility] Comment on above: Performed By: #### 2 66429 #### [facility],[address] [place] [address] 73883 WBC 9.2 x 10EE3/UL Normal 4.5 - 10.8 [facility] Comment on above: Performed By: #### 2 75142 #### [facility],[address] [place] [address] 13990 CHEST 1 VIEWon 03-29-2021 CHEST 1 VIEW [place] [address] Patient: FRED LEE Phone#: : 1995 Age: 26 Gender: M Pt. Type: ER Account: [id number] Location: [facility] Ordering: DR. CHARITY RAI Exam Date: 03/29/2021/4:10 Family Phys: NO DOCTOR Charge Code: 309285 Physician: [place] Order #: [id number] DLP Dose#: PROCEDURE: X-RAY CHEST 1 VIEW COMPARISON: [facility], XR, CHEST 1 VIEW, 04/03/2020, 5:44. INDICATIONS: Chest pain. FINDINGS: LUNGS: Normal. No significant pulmonary parenchymal abnormalities. VASCULATURE: Normal. Unremarkable pulmonary vasculature. CARDIAC: Normal. No cardiac silhouette abnormality or cardiomegaly. MEDIASTINUM: Normal. No visible mass or adenopathy. PLEURA: Normal. No effusion or pleural thickening. BONES: Normal. No fracture or visible bony lesion. OTHER: Negative. CONCLUSION: No acute disease. No significant change has occurred. Dictated by: Keren Schwartz MD on 03/29/2021 at 10:33 Approved by: Keren Schwartz MD on 03/29/2021 at 10:[address] [facility] TROPONIN I, HIGH SENSITIVITY on 03-29-2021 HS TROPONIN 4.9 pg/mL Normal 0.0 - 76.2 [facility] Comment on above: Performed By: #### 2 01521 #### [facility],[address] [place] [address] HS TROPONIN <4.0 Normal 0.0 - 76.2 [facility] Comment on above: Performed By: #### 2 68043 #### [facility],[address] [place], [place] [address] Basic Metabolic Panlon 03-02 Anion gap 3 molar conc 12 mmol/L Normal 9-18 [facility] Comment on above: Performed By: #### T SH, BMP, LI ####[facility] [address] [place] [phone] Calcium mass conc 9.6 mg/dL Normal 8.5-10.2 [facility] Comment on above: Performed By: #### T SHABBIR ROMERO, LI ####[facility] [address]CGl[address] [place] [phone] Chloride molar conc 102 mmol/L Normal 97-105 [facility] Comment on above: Performed By: #### T SHABBIR ROMERO, LI ####[facility] [phone] CO2 molar conc 26 mmol/L Normal 22-30 [facility] Comment on above: Performed By: #### T SHABBIR ROMERO, LI ####[place] [address] [address] [place] [phone] Creatinine mass conc 0.92 mg/dL Normal 0.73-1.22 [facility] Comment on above: Performed By: #### T SHABBIR ROMERO, LI ####[facility] [address] AvJoseph [place] [phone] eGFR- Amer. >60 Normal [facility] Comment on above: Performed By: #### T SHABBIR ROMERO, LI ####[facility] [phone] GFR/1.73 sq M predicted among non-blacks MDRD vol rate/area (S/P/Bld) mL/min/{1.73_m2} Normal [facility] Comment on above: Performed By: #### T SHABBIR ROMERO, LI ####[facility] [address] AvDer[address] [place] [phone] Glucose mass conc 92 mg/dL Normal 74-99 [facility] Comment on above: Performed By: #### T SHABBIR ROMERO, LI ####[facility] Xcj[address]CErica [place] [phone] Potassium molar conc 4.2 mmol/L Normal 3.7-5.1 [facility] Comment on above: Performed By: #### T SHABBIR ROMERO LI ####[facility] [address] AvDer[address] [place] [phone] Sodium molar conc 140 mmol/L Normal 136-144 [facility] Comment on above: Performed By: #### T SHABBIR ROMERO, LI ####[phone] Urea nitrogen mass conc 11 mg/dL Normal 9-24 [facility] Comment on above: Performed By: #### T SHABBIR ROMERO LI ####[facility] [address] [place] [phone] TSHon 03-02-2018 Thyrotropin Qn 2.940 uU/mL Normal 0.400-5.500 [facility] Comment on above: Performed By: #### T SHABBIR ROMERO LI ####[address] [place] [phone] Lithiumon 03-01-2018 [place] molar conc 0.4 mmol/L Low 0.6-1.2 [facility] Comment on above: Performed By: #### T SHABBIR ROMERO, CAESAR ####[facility] [address] [place], [place] [address] [place] [phone] CBC and Differentialon 02-11 Abs Baso 0.07 k/uL Normal <0.11 [facility] Comment on above: Performed By: #### L I, CMP, CBCDIF, TSH, VITD ####[facility] [address] Av[address] [place] [phone] Abs [place] 0.68 k/uL Normal <0.87 [facility] Comment on above: Performed By: #### L I, CMP, CBCDIF, TSH, VITD ####[place] [address] [address] [place] [phone] Abs Neut 4.15 k/uL Normal 1.45-7.50 [facility] Comment on above: Performed By: #### L I, CMP, CBCDIF, TSH, VITD ####[place] [phone] Absolute nRBC <0.01 Normal <0.01 [facility] Comment on above: Performed By: #### L I, CMP, CBCDIF, TSH, VITD ####[place] [phone] Basophils/100 WBC Auto (Bld) 0.9 % Normal [facility] Comment on above: Performed By: #### L I, CMP, CBCDIF, TSH, VITD ####[place] [phone] DTYPE ADIFF Normal [facility] Comment on above: Performed By: #### L I, CMP, CBCDIF, TSH, VITD ####[place] [phone] Eosinophils Auto #/vol (Bld) 0.28 10*3/uL Normal <0.46 [facility] Comment on above: Performed By: #### L I, CMP, CBCDIF, TSH, VITD ####[address] [place] [phone] Eosinophils/100 WBC Auto (Bld) 3.7 % Normal [facility] Comment on above: Performed By: #### L I, CMP, CBCDIF, TSH, VITD ####[address] [place] [phone] Erythrocyte distribution width Auto Ratio (RBC) 13.7 % Normal 11.5-15.0 [facility] Comment on above: Performed By: #### L I, CMP, CBCDIF, TSH, VITD ####[place] [id number] [place] [phone] Hematocrit Auto Volume Fraction (Bld) 46.5 % Normal 39.0-51.0 [facility] Comment on above: Performed By: #### L I, CMP, CBCDIF, TSH, VITD ####[place] [address] [address] [place] [phone] Hemoglobin mass conc (Bld) 15.3 g/dL Normal 13.0-17.0 [facility] Comment on above: Performed By: #### L I, CMP, CBCDIF, TSH, VITD ####[place] [address] [address] [place] [phone] Lymphocytes Auto #/vol (Bld) 2.48 10*3/uL Normal 1.00-4.00 [facility] Comment on above: Performed By: #### L I, CMP, CBCDIF, TSH, VITD ####[place] [address] [address] [place] [phone] Lymphocytes/100 WBC Auto (Bld) 32.4 % Normal [facility] Comment on above: Performed By: #### L I, CMP, CBCDIF, TSH, VITD ####[place] [address] [address] [place] [phone] MCH Auto Entitic mass (RBC) 29.9 pG Normal 26.0-34.0 [facility] Comment on above: Performed By: #### L I, CMP, CBCDIF, TSH, VITD ####[place] [address] [address] [place] [phone] MCHC Auto mass conc (RBC) 32.9 g/dL Normal 30.5-36.0 [facility] Comment on above: Performed By: #### L I, CMP, CBCDIF, TSH, VITD ####[place] [address] [address] [place] [phone] MCV Auto Entitic volume (RBC) 90.8 fL Normal 80.0-100.0 [facility] Comment on above: Performed By: #### L I, CMP, CBCDIF, TSH, VITD ####[place] [address] [phone] Monocytes/100 WBC Auto (Bld) 8.9 % Normal [facility] Comment on above: Performed By: #### L I, CMP, CBCDIF, TSH, VITD ####[place] [address] [address] [place] [phone] Neutrophils/100 WBC Auto (Bld) 54.1 % Normal [facility] Comment on above: Performed By: #### L I, CMP, CBCDIF, TSH, VITD ####[place] [address] [address] [place] [phone] NRBCs 0.0 /100 WBC Normal 0 [facility] Comment on above: Performed By: #### L I, CMP, CBCDIF, TSH, VITD ####[place] [address] [address] [place] [phone] Platelet mean volume Auto Entitic volume (Bld) 11.3 fL Normal 9.0-12.7 [facility] Comment on above: Performed By: #### L I, CMP, CBCDIF, TSH, VITD ####[place] [address] [address] [place] [phone] Platelets Auto #/vol (Bld) 239 10*3/uL Normal 150-400 [facility] Comment on above: Performed By: #### L I, CMP, CBCDIF, TSH, VITD ####[facility] [address] [place], [place] [phone] RBC Auto #/vol (Bld) 5.12 10*6/uL Normal 4.20-6.00 [facility] Comment on above: Performed By: #### L I, CMP, CBCDIF, TSH, VITD ####[address] [place], [place] [phone] WBC Auto #/vol (Bld) 7.66 10*3/uL Normal 3.70-11.00 [facility] Comment on above: Performed By: #### L I, CMP, CBCDIF, TSH, VITD ####[address] [place], [place] [phone] Comp Metabolic Panelon 02-11 Albumin mass conc 4.8 g/dL Normal 3.9-4.9 [facility] Comment on above: Performed By: #### L I, CMP, CBCDIF, TSH, VITD ####[address] [place], [place] [phone] ALP enzyme act/vol 91 U/L Normal 38-113 [facility] Comment on above: Performed By: #### L I, CMP, CBCDIF, TSH, VITD ####[address] [place], [place] [phone] ALT enzyme act/vol 35 U/L Normal 10-54 [facility] Comment on above: Performed By: #### L I, CMP, CBCDIF, TSH, VITD ####[address] [place], [place] [phone] Anion gap 3 molar conc 14 mmol/L Normal 9-18 [facility] Comment on above: Performed By: #### L I, CMP, CBCDIF, TSH, VITD ####[facility] [address] [place] [phone] AST enzyme act/vol 39 U/L Normal 14-40 [facility] Comment on above: Performed By: #### L I, CMP, CBCDIF, TSH, VITD ####[facility] [address] [place] [phone] Bilirubin Ql (U) 0.8 mg/dL Normal 0.2-1.3 [facility] Reference [facility] Comment on above: Performed By: #### L I, CMP, CBCDIF, TSH, VITD ####[address] [place] [phone] Calcium mass conc 10.1 mg/dL Normal 8.5-10.2 [facility] Comment on above: Performed By: #### L I, CMP, CBCDIF, TSH, VITD ####[address] [place] [phone] Chloride molar conc 103 mmol/L Normal 97-105 [facility] Reference [facility] Comment on above: Performed By: #### L I, CMP, CBCDIF, TSH, VITD ####[place] [address] [place] [phone] CO2 molar conc 25 mmol/L Normal 22-30 [facility] Comment on above: Performed By: #### L I, CMP, CBCDIF, TSH, VITD ####[facility] [address] [place] [phone] Creatinine mass conc 0.69 mg/dL Low 0.73-1.22 [facility] Comment on above: Performed By: #### L I, CMP, CBCDIF, TSH, VITD ####[facility] [address] [place] [phone] eGFR- Amer. >60 Normal [facility] Comment on above: Performed By: #### L I, CMP, CBCDIF, TSH, VITD ####[place] [phone] GFR/1.73 sq M predicted among non-blacks MDRD vol rate/area (S/P/Bld) mL/min/{1.73_m2} Normal [facility] Comment on above: Performed By: #### L I, CMP, CBCDIF, TSH, VITD ####[place] [phone] Glucose mass conc 84 mg/dL Normal 74-99 [facility] Comment on above: Performed By: #### L I, CMP, CBCDIF, TSH, VITD ####[place] [phone] Potassium molar conc 4.2 mmol/L Normal 3.7-5.1 [facility] Comment on above: Performed By: #### L I, CMP, CBCDIF, TSH, VITD ####[place] [phone] Protein mass conc 7.8 g/dL Normal 6.3-8.0 [facility] Comment on above: Performed By: #### L I, CMP, CBCDIF, TSH, VITD ####[place] [phone] Sodium molar conc 142 mmol/L Normal 136-144 [facility] Comment on above: Performed By: #### L I, CMP, CBCDIF, TSH, VITD ####[place] [phone] Urea nitrogen mass conc 11 mg/dL Normal 9-24 [facility] Comment on above: Performed By: #### L I, CMP, CBCDIF, TSH, VITD ####[facility] [address] [place], [place] [phone] Lithiumon 02-11-2018 [place] molar conc mmol/L Low 0.6-1.2 [facility] Comment on above: Performed By: #### L I, CMP, CBCDIF, TSH, VITD ####[facility] [address] [place], [place] [phone] TSHon 02-11-2018 Thyrotropin Qn 0.837 uU/mL Normal 0.400-5.500 [facility] Reference Lab Comment on above: Performed By: #### L I, CMP, CBCDIF, TSH, VITD ####[facility] [id number] [place], [place] [phone] Vitamin D 25 Hydroxyon 02-11 Vitamin D 25 Hydroxy 31.6 ng/mL Normal 31.0-80.0 [facility] Comment on above: Performed By: #### L I, CMP, CBCDIF, TSH, VITD ####[facility] [id number] [place], [place] [phone] Encounters Encounter Date Encounter Type Care Provider Facility Start: 12-30-2022 End: 12-30-2022 ambulatory ANNETTE HARRIS Facility:[facility] Start: 12-30-2022 End: 12-30-2022 Subsequent hospital visit by physician Brittany [facility] [place] Work Phone: Radiology Comment on above: Acute cough [R05.1] Start: 10-31-2021 End: 11-01-2021 Emergency department patient visit GEREMIAS JACQUES [facility] Start: 07-03-[address] [facility] Start: 03-29-2021 End: 03-29-2021 Emergency department patient visit CHARITY CHACKO [facility] Procedures Date Procedure Procedure Detail Performing Clinician Start: 12-30-2022 Radiologic exam ches t 2 views Annette Harris [employer] Work Phone: Plan of Treatment Date Care Activity Detail Author Start: 03-11-2029 Urine microalbumin profile DTaP,Tdap,Td Vaccine (3 - Td or Tdap) [facility] Start: 12-06-2023 Covid-19 Vaccine ( season) Covid-19 Vaccine ( season) [facility] Start: 12-06-2023 Influenza vaccination Influenza Vacc ine (#1) [facility] Start: 2012 Hepatitis B Vaccine (1 of 3 - 19+ 3-dose series) Hepatitis B Vaccine (1 of 3 - 19+ 3-dose series) [facility] Start: 2011 Anxiety Screening Anxiety Screening [facility] Start: 2011 Depression Screening Depression Scre ening [facility] Start: 2011 HIV screening HIV Screening [facility] Start: 1999 Pneumococcal vaccination Pneum ococcal Vaccine (1 of 2 - PCV) [facility] Immunizations Immunization Date Immunization Notes Care Provider Fa eloyty 03-11-2019 tetanus toxoid, redu faizan diphtheria toxoid, and acellular pertussis vaccine, adsorbed Xr [place] Work Phone: [facility] 12-13-2016 influenza virus vacc ine, unspecified formulation Xr [place] Work Phone: [facility] Social History Date Type Detail Facility Start: 03-26-2006 Tobacco smoking stat us MDIS Smokes tobacco daily [facility] Start: 03-26-2006 History of tobacco use Cigarette Smo ker [facility] Start: 03-15-2020 End: 12-30-2022 Cigarettes smoked current (pack per day) - Reported 0.5 [facility] Start: 12-30-2022 Tobacco use and exposure User of smokeless tobacco [facility] History of tobacco use [facility] Start: 12-30-2022 Alcoholic beverage intake Curr ent non-drinker of alcohol (finding) [facility] Start: 03-15-2020 End: 12-30-2022 Tobacco use panel [facility] National Score (1-10 0), lower number is lower risk Not on file [facility] Start: 1993 Sex assigned at Not on file C [facility] Progress note 12-30-2022 Note Date & Type Note Facility 12-30-2022 Note HNO ID: [id number] Author: Ryann Lemus RT(R) Service: Radiology Author Type: Technologist Type: Progress Notes Filed: 12/30/2022 1:41 PM Note Text: Radiology Service Progress Note PATIENT NAME: Fred Lee DATE OF SERVICE: December 30, 2022 TIME: 1:28 PM PATIENT IDENTITY VERIFICATION COMPLETED USING TWO (2) IDENTIFIERS: Name and Date of confirmed by patient verbally. FALL SCREENING: Has the patient had 2 falls in the last year or 1 fall with injury or currently using an Ambulatory Assistive Device (Walker, Cane, Wheelchair, Crutches, etc.)? No PATIENT GENDER DATA: Male PATIENT RELEVANT IMPLANT DATA REVIEWED: Yes RADIOLOGY DEPARTMENT: General X-ray: Exam(s) Completed: Chest X-Ray PERIPHERAL IV DATA: Not applicable SIGNED BY: RT Yana(R) December 30, 2022 1:28 PM [facility] Progress note 12-30-2022 Note Date & Type Note Facility 12-30-2022 Note HNO ID: [id number] Author: Annette Harris APRN.[employer] Service: ? Author Type: Nurse Practitioner Type: Progress Notes Filed: 12/30/2022 3:07 PM Note Text: This note was created using NoteWriter. Subjective Fred Lee is a 27 year old male. 27 year old male with no PMH presents for illness. Acute onset 6 days ago Started with fever and ear pain Has progressed +cough +productive +chest congestion SOB with coughing and doing activity Quit smoking this past August 2022 Has used Dayquil and Nyquil The history is provided by the patient. No modern languages professor was used. Cough This is a new problem. The current episode started more than 2 days ago. The problem occurs constantly. The problem has been gradually worsening. The maximum temperature recorded prior to his arrival was 100 to 100.9 F. Associated symptoms include chills, headaches, rhinorrhea, sore throat and wheezing. Pertinent negatives include no sweats, no weight loss, no ear congestion, no ear pain, no myalgias, no shortness of breath and no eye redness. Treatments tried: see HPI. The treatment provided no relief. He is not a smoker. His past medical history does not include bronchitis, pneumonia, bronchiectasis, COPD, emphysema or asthma. PAST MEDICAL HISTORY Diagnosis Date Anxiety Cleft palate Depression Scoliosis Tobacco use PAST SURGICAL HISTORY Procedure Laterality Date MYRINGOTOMY PALATOPLASTY - CLEFT PALATE PAST SURGICAL HISTORY OF wisdom teeth extraction SEPTOPLASTY deviated septum TONSILLECTOMY HX ALLERGIES Patient has no known allergies. MEDICATIONS MEN'S MULTI-VITAMIN ORAL Take by mouth. amoxicillin-clavulanic acid (AUGMENTIN) 875-125 mg per tablet Take 1 tablet by mouth twice daily for 7 days. benzonatate (TESSALON PERLES) 100 mg capsule Take 1 capsule by mouth three times daily as needed for cough. PARoxetine (PAXIL) 40 mg tablet Take 1 tablet by mouth once daily. (Patient not taking: Reported on 02/09/2019 ) FAMILY HISTORY Problem Relation Age of Onset Psychiatry Mother Heart Father Cancer Maternal Uncle lung, pancreatic, throat Social History Tobacco Use Smoking status: Every Day Packs/day: 0.50 Years: 10.00 Additional pack years: 0.00 Total pack years: 5.00 Types: Cigarettes Start date: 03/26/2006 Smokeless tobacco: Current Types: Chew Substance Use Topics Alcohol use: No Drug use: No Comment: previously used THC, no h/o IVDA Review of Systems Constitutional: Positive for chills. Negative for weight loss. HENT: Positive for rhinorrhea and sore throat. Negative for ear pain. Eyes: Negative for redness. Respiratory: Positive for cough and wheezing. Negative for shortness of breath. Musculoskeletal: Negative for myalgias. Neurological: Positive for headaches. Objective BP 112/76 Pulse 92 Temp 36.6 ?C (97.9 ?F) (Tympanic) Resp 16 Wt 89.4 kg (197 lb) SpO2 97% Physical Exam Vitals and nursing note reviewed. Constitutional: General: He is not in acute distress. Appearance: Normal appearance. He is not ill-appearing, toxic-appearing or diaphoretic. HENT: Head: Normocephalic and atraumatic. Right Ear: External ear normal. Left Ear: External ear normal. Ears: Comments: Left ear with erythematous and bulging TM Nose: Nose normal. No congestion or rhinorrhea. Mouth/Throat: Mouth: Mucous membranes are moist. Pharynx: Oropharynx is clear. No oropharyngeal exudate or posterior oropharyngeal erythema. Eyes: General: Right eye: No discharge. Left eye: No discharge. Extraocular Movements: Extraocular movements intact. Conjunctiva/sclera: Conjunctivae normal. Pupils: Pupils are equal, round, and reactive to light. Cardiovascular: Rate and Rhythm: Normal rate and regular rhythm. Pulses: Normal pulses. Heart sounds: Normal heart sounds. No murmur heard. No friction rub. No gallop. Pulmonary: Effort: Pulmonary effort is normal. No respiratory distress. Breath sounds: Normal breath sounds. No stridor. No wheezing, rhonchi or rales. Chest: Chest wall: No tenderness. Abdominal: General: Abdomen is flat. There is no distension. Palpations: Abdomen is soft. There is no mass. Tenderness: There is no abdominal tenderness. There is no guarding or rebound. Hernia: No hernia is present. Musculoskeletal: General: No swelling, tenderness, deformity or signs of injury. Normal range of motion. Cervical back: Normal range of motion and neck supple. No rigidity or tenderness. Right lower leg: No edema. Left lower leg: No edema. Lymphadenopathy: Cervical: No cervical adenopathy. Skin: General: Skin is warm and dry. Capillary Refill: Capillary refill takes less than 2 seconds. Coloration: Skin is not jaundiced or pale. Findings: No bruising, lesion or rash. Neurological: General: No focal deficit present. Mental Status: He is alert and oriented to person, place, and time. Crani (more content not included)... [facility] History of Present illness Narrative 12-30-2022 Ryann Lemus, RT(R) - 12/30/2022 1:30 PM EDT Note Date & Type Note Facility 12-30-2022 History of Presen t illness Narrative Radiology Service Progress Note PATIENT NAME: rFed Lee DATE OF SERVICE: December 30, 2022 TIME: 1:28 PM PATIENT IDENTITY VERIFICATION COMPLETED USING TWO (2) IDENTIFIERS: Name and Date of confirmed by patient verbally. FALL SCREENING: Has the patient had 2 falls in the last year or 1 fall with injury or currently using an Ambulatory Assistive Device (Walker, Cane, Wheelchair, Crutches, etc.)? No PATIENT GENDER DATA: Male PATIENT RELEVANT IMPLANT DATA REVIEWED: Yes RADIOLOGY DEPARTMENT: General X-ray: Exam(s) Completed: Chest X-Ray PERIPHERAL IV DATA: Not applicable SIGNED BY: RT Yana(R) December 30, 2022 1:28 PM documented in this encounter [facility] Evaluation note Note Date & Type Note Facility Evaluation note Diagnosis Acute cough documented in this encounter [facility] Summary Purpose Family History No Family History Records FoundNo Family History Records FoundNo Family History Records FoundNo Family History Records Found Advance Directives No Advanced Directives Records FoundNo Advanced Directives Records FoundNo Advanced Directives Records FoundNo Advanced Directives Records Found Additional Source Comments (unrecognized sect ion and content) No Status Records FoundNo Status Records FoundNo Status Records FoundNo Status Records Found INFORMATION SOURCE (unrecogn ized section and content) DATE CREATED AUTHOR 03/15/2018 [facility] DATE CREATED AUTHOR AUTHOR'S ORGANIZ ATION 07/19/2021 [facility] DATE CREATED AUTHOR AUTHOR'S ORGANIZ ATION 02/22/2022 [facility] DATE CREATED AUTHOR AUTHOR'S ORGANIZ ATION 01/07/2023 [facility] Source Comments (unrecognize d section and content) In the event this informatio n is protected by the Federal Confidentiality of Alcohol and Drug Abuse Patient Records regulations: The Federal rules restrict any use of the information to criminally investigate or prosecute any alcohol or drug abuse patient.[facility] FOR RECORDS PERTAINING TO PATIENTS WHO ARE OR HAVE BEEN ENROLLED IN A CHEMICAL DEPENDENCY/SUBSTANCEABUSE PROGRAM, SOME INFORMATION MAY BE OMITTED. This clinical summary was aggregated from multiple sources. Caution should be exercised in using it in the provision of clinical care. This summary normalizes information from multiple sources, and as a consequence, information in this document may materially change the coding, format and clinical context of patient data. In addition, data may be omitted in some cases. CLINICAL DECISIONS SHOULD BE BASED ON THE PRIMARY CLINICAL RECORDS. [facility] [employer] [facility]. provides no warranty or guarantee of the accuracy or completeness of information in this document.
--- NOTE | 2024-12-04 04:18 | RAD_ITS ---
PROCEDURE: CHEST PA AND LATERAL 12/04/2024 REASON FOR EXAM: CHEST PAIN TECHNIQUE: Procedure Code: RADCXR Modality: DX Procedure: CHEST PA AND LATERAL COMPARISON: None. FINDINGS: The lungs are expanded. There is no demonstrated parenchymal abnormality. There is no demonstrated pleural abnormality. Normal heart and pericardium. Normal mediastinum and bryce. Normal visualized pulmonary arteries. Normal visualized aortic arch and descending thoracic aorta. Normal visualized thoracic spine. Normal visualized ribs, clavicles, and shoulders. There is no demonstrated abnormality of the visualized soft tissue structures of the upper abdomen. RAD/Chest PA and Lateral IMPRESSION: No evidence for acute abnormality. [facility]
[2024-12-04 04:54] LABS: Anion Gap 9 (5-15); BUN 16 mg/dL (4-19); BUN/Creat Ratio 15.2 RATIO (10-20); Calcium,Total 9.5 mg/dL (7.6-11.0); Carbon Dioxide 27.8 mmol/L (21.0-32.0); Chloride 105 mmol/L (98-108); Estimated Creatinine Clearance 107.82 ml/min (50-250); Glucose 103 mg/dL (70-99); Magnesium 2.2 mg/dL (1.5-2.2); Potassium 4.5 mmol/L (3.3-5.1); Troponin T High Sensitivity < 6 ng/L (<=22)
[2024-12-04 05:03] VITALS: BP 105/87; PULSE 77; RESP 16; TEMP 36.6; O2SAT 100
--- NOTE | 2024-12-04 06:12 | EKG12_ITS ---
Test Reason : PALPITATIONS Blood Pressure : */* mmHG Vent. Rate : 84 BPM Atrial Rate : 84 BPM P-R Int : 138 ms QRS Dur : 88 ms QT Int : 362 ms P-R-T Axes : 60 34 33 degrees QTcB Int : 427 ms Normal sinus rhythm Normal ECG Confirmed by Ilya nAdino ([id number]), material expeditor CAMMY HERNÁNDEZ ([id number]) on 12/06/2024 10:34:35 AM Referred By: ELVA Confirmed By: Ilya Andino
== END 2024-12-04 05:13 | disposition home or self-care (01) ==
PROVIDERS: Emergency Provider Student in an Organized Health Care Education/Training Program; Visit Provider Student in an Organized Health Care Education/Training Program
DX: R00.2 Palpitations (principal); R07.9 Chest pain, unspecified; Z87.891 Personal history of nicotine dependence
CPT/HCPCS: 71046; 80048; 83735; 84443; 84484; 85025; 93005; 99283